=== PATIENT | female | born 1990 | race Caucasian/White ===

== ENCOUNTER 2020-05-28 00:09 | Emergency (ER) | payer OTHER ==
[~2020-05-28] VITALS: Ht 170.2 cm; Wt 106.8 kg
[~2020-05-28 00:09] MED LIST: CIMETIDINE200 MG PO; MAXZIDE 75/501 TAB PO; MOBIC7.5 MG PO; OMEPRAZOLE20 M1 PO; REVATIO20 MG PO
[2020-05-28 00:12] VITALS: Ht 170.2 cm; Wt 106.8 kg
[2020-05-28 00:56] LABS: HEMATOCRIT 40.5 % (36.0-48.0); HEMOGLOBIN 13.2 g/dL (12-16); LYMPHOCYTE ABS# 1.58 10x3/uL (1.18-3.74); MCH 27.7 pg (26.0-34.0); MCHC 32.6 g/dL (31.0-37.0); MCV 85.1 fL (80.0-100.0); MEAN PLATELET VOLUME 11.1 fL (7.4-10.4); NEUTROPHIL ABS# 21.99 10x3/uL (1.56-6.13); PLATELET COUNT 306 10x3/uL (130-400); RBC 4.76 10x6/uL (4.00-5.40); RDW 14.4 % (11.5-14.5); WBC 26.4 10x3/uL (4.8-10.8)
[2020-05-28 00:58] LABS: ANION GAP 9.6 mmol/L (8-16); CALCIUM 10.4 mg/dL (8.5-10.1); CARBON DIOXIDE 28.7 mmol/L (21.0-32.0); CREATININE - SERUM 1.2 mg/dL (0.6-1.3); POTASSIUM - SERUM 3.3 mmol/L (3.5-5.1)
[2020-05-28 00:59] LABS: HCG SERUM NEGATIVE (NEGATIVE)
[2020-05-28 01:04] LABS: BILIRUBIN - TOTAL 0.34 mg/dL (0.2-1.3); PROTEIN - SERUM 7.5 g/dL (6.4-8.2)
[2020-05-28 01:16] LABS: LYMPHOCYTES 10 % (15-50); NEUTROPHILS 70 % (40-80); PLATELET ESTIMATE NORMAL
[2020-05-28 01:57] LABS: BACTERIA MODERATE HPF (NONE SEEN); SQUAMOUS EPITHELIAL 0-5 HPF (0-4)
[2020-05-28 03:33] VITALS: BP 129/78
== END 2020-05-28 04:32 | disposition other institution (70) ==
LOC: D.ER 00:09
PROVIDERS: Family Medicine
DX: N20.1 Calculus of ureter (principal); I10 Essential (primary) hypertension; R51.9 Headache, unspecified; M54.9 Dorsalgia, unspecified; R50.9 Fever, unspecified; R10.9 Unspecified abdominal pain; M32.9 Systemic lupus erythematosus, unspecified